=== PATIENT | female | born 1955 | race Caucasian/White ===

== ENCOUNTER → 2019-12-25 11:02 | Outpatient (CLI) | payer MEDICARE, MEDICAID, SELFPAY ==
--- NOTE | 2019-12-25 11:12 | DI.CT.S_ITS ---
PROCEDURE: CT LUMBAR SPINE WO CON INDICATIONS: other intervertebral disc degeneration TECHNIQUE: Noncontrast 3 mm thick sections acquired from the T12 level to the sacrum. Sagittal and coronal reformats were constructed. For radiation dose reduction, the following was used: automated exposure control. COMPARISON: [facility], [place], XR LUMBAR SPINE 2 OR 3 VIEWS, 12/11/2019, 13:48. FINDINGS: Image quality: Excellent. Bones: There is normal bony alignment. No acute vertebral body compression fractures. No suspicious lytic or blastic bony lesions. Central spinal caliber is of normal overall caliber. No pars defects. T12-L1: No significant degenerative disc height reduction or osteophyte formation. L1-L2: No appreciable degenerative disc height reduction or osteophyte formation. L2-L3: Normal disc height is maintained, mild bilateral facet osteoarthritis without spinal or foraminal stenosis. L3-L4: L3 represents the upper margin of the fusion procedure that has been performed bilaterally with transverse pedicle screws and vertical fixation rods crossing from superior L3 through mid S1. No device loosening or disruption is suspected at this level. Mild facet osteoarthritis. Moderate ligamentum flavum hypertrophy. L4-L5: Metal artifact from the posterior fixation devices and also an interbody disc cage prosthesis at this level reduces quality visualization. There appears to be facet hyperostosis greater on the left than the right resulting in asymmetric left-sided foraminal stenosis at this level. L5-S1: As was seen at the level above there is additional metal artifact from an interbody cage disc prosthesis, in addition to the posterior element fixation devices and vertical rods. Hyperostosis where well seen is greater on the left than the right and asymmetric left greater than right foraminal stenosis appears present. Soft tissues: No retroperitoneal masses or hematomas. Visualized aorta is normal in caliber. IMPRESSION: Multilevel degenerative changes as discussed are present from L4 inferiorly, with facet hyperostosis greater on the left than the right and with secondary asymmetric left greater than right foraminal stenosis. No evidence of device loosening or disruption. No adjacent paravertebral inflammatory change is found. Dictated by: Espinoza Harmon M.D. on 12/25/2019 at 13:17 Approved by: Espinoza Harmon M.D. on 12/25/2019 at 13:23
== END ==
PROVIDERS: PCP Family Medicine; Referring Provider Orthopaedic Surgery Orthopaedic Surgery of the Spine; Visit Provider Orthopaedic Surgery Orthopaedic Surgery of the Spine
DX: M51.37 Other intervertebral disc degeneration, lumbosacral region (principal); M47.816 Spondylosis without myelopathy or radiculopathy, lumbar region; M48.061 Spinal stenosis, lumbar region without neurogenic claudication; Z98.1 Arthrodesis status
CPT/HCPCS: 72131